=== PATIENT | female | born 1965 | race Caucasian/White ===

== ENCOUNTER 2016-05-28 13:43 | Emergency (ER) | payer MEDICAID ==
[2016-05-28 14:24] LABS: Hematocrit 48.3 % (37.0-47.0); Hemoglobin 15.9 gm/dL (12.5-16.0)
[2016-05-28 14:43] LABS: Albumin * 3.6 gm/dl (3.4-5.0); Anion Gap 13.5 mmol/L (6.8-13.8); BUN/Creatinine Ratio 6.4 (9.0-21.6); Bilirubin, Total 0.7 mg/dL (0.0-1.1); Ca. Corrected For Albumin 9.3 mg/dL (8.4-10.2); Calcium * 9.3 mg/dL (7.9-10.9); Carbon Dioxide 27.8 mmol/L (24-32.6); Potassium 3.3 mmol/L (3.4-4.6); Total Protein 8.2 gm/dL (6.2-8.2)
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
[2016-05-28] MEDS ORDERED: LIDOCAINE HCL/EPINEPHRINE 30 ML VIAL IJ ONE (15:48)
[2016-05-28] MEDS ORDERED: MORPHINE SULFATE 2 MG/ML DISP.SYRIN IV ONE (16:12)
[2016-05-28] MEDS ORDERED: MORPHINE SULFATE 2 MG/ML DISP.SYRIN ONE (16:14)
[2016-05-28 18:48] VITALS: BP 149/82
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
== END 2016-05-28 18:00 | disposition home or self-care (01) ==
LOC: ER 13:43
PROC: 0HQ0XZZ Repair Scalp Skin, External Approach (ICD-10-PCS; principal; 2016-05-28)
DX: S16.1XXA Strain of muscle, fascia and tendon at neck level, initial encounter (principal); S10.93XA Contusion of unspecified part of neck, initial encounter; S20.02XA Contusion of left breast, initial encounter; S20.219A Contusion of unspecified front wall of thorax, initial encounter; V43.62XA Car passenger injured in collision with other type car in traffic accident, initial encounter; Y92.410 Unspecified street and highway as the place of occurrence of the external cause; F17.210 Nicotine dependence, cigarettes, uncomplicated; S09.90XA Unspecified injury of head, initial encounter; S80.01XA Contusion of right knee, initial encounter

== ENCOUNTER 2016-06-04 12:54 | Emergency (ER) | payer MEDICAID ==
[2016-06-04 13:10] VITALS: BP 143/83
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
== END 2016-06-04 14:13 | disposition home or self-care (01) ==
LOC: ER 12:54
DX: M25.775 Osteophyte, left foot (principal); F17.210 Nicotine dependence, cigarettes, uncomplicated

== ENCOUNTER 2016-11-04 07:53 | Inpatient (IN) | payer MEDICAID ==
[~2016-11-04 07:53] MED LIST: MORPHINE SULFATE 15 MG TABLET.SA PO PRN; RINGERS SOLUTION,LACTATED 1,000 ML IV PRN; ROPIVACAINE HCL/PF 100 MG, EPINEPHrine 0.2 MG in NORMAL SALINE 100 ML IJ PRN; ROPIVACAINE HCL/PF 40 MG in NORMAL SALINE 16 ML IJ PRN; TRANEXAMIC ACID 1,000 MG in NORMAL SALINE 100 ML IV PRN; ceFAZolin SODIUM 1 GM VIAL IV PRN
--- OUTSIDE RECORDS SUMMARY | 2016-11-04 07:59 | XMS REPORT | Continuity of Care Document ---
:1965 Author Organization [facility] ([facility]) Address [address] [place] [address] Phone [phone] Care Team Providers Name Role Phone Emeterio [place] Primary Care Provider [phone] Source Comments This disclosure is being made pursuant to the Care Everywhere program, applicable federal and state laws, and may not contain all informaitonavailable regarding this patient.[facility] ([facility]) Active Allergies and Adverse Reactions Allergen Noted Date Severity Reactions Comments Aspirin Nausea & Vomiting Ibuprofen Urticaria (Hives) Latex, Natural Rubber Urticaria (Hives) Gets a rash wearing Latex gloves. Topiramate 03/16/2014 OTHER Blurry vision Current Medications Prescription Sig. Disp. Refills Start Date End Date Status blood glucose meter Check fasting blood 1 Each 0 08/15/2011 Active (BLOOD GLUCOSE METER) sugar at least 5 Kit times a week and document. Indications: Diabetes Mellitus albuterol 90 Use 2 Puffs by 1 Inhaler 6 12/18/2011 Active mcg/Actuation inhaler inhalation every 6 hours as needed. Indications: BRONCHOSPASM PREVENTION simvastatin 40 mg Take 1 Tab by mouth 60 Tab 2 07/20/2013 Active tablet every evening. Indications: MIXED HYPERLIPIDEMIA traMADol 50 mg tablet Take 1 Tab by mouth 90 Tab 1 07/21/2013 Active 4 times daily as needed. Indications: PAIN citalopram 20 mg Take 1 Tab by mouth 60 Tab 3 08/18/2013 Active tablet daily. Indications: VASOMOTOR SYMPTOMS ASSOCIATED WITH MENOPAUSE atenolol 25 mg tablet Take 1 Tab by mouth 60 Tab 11 08/18/2013 Active daily. Indications: HYPERTENSION SUPPLY blood glucose Use to test blood 150 Strip 11 03/16/2014 Active test strips sugar twice daily or as directed. Indications: DIABETES MELLITUS SUPPLY lancets Use twice daily or 150 Each 11 03/16/2014 Active as directed. Indications: DIABETES MELLITUS gabapentin 300 mg Take 2 Caps by mouth 120 Cap 4 03/16/2014 Active capsule 2 times daily. Indications: NEUROPATHIC PAIN NEBULIZER ACCESSORIES Use as directed for 01/02/2015 Active NA COPD 496 8 cyclobenzaprine 10 mg take 1 tablet by 03/29/2015 Active tablet oral route 3 times a day as needed acetaminophen-codeine at bedtime as needed 0 04/06/2015 Active 300-30 mg per tablet Active Problems Problem Noted Date Osteoarthritis of both knees 05/11/2015 Morbid obesity 02/16/2014 COPD (chronic obstructive pulmonary disease) 12/08/2013 Primary osteoarthritis of both knees 07/20/2013 Type II or unspecified type diabetes mellitus without mention of 04/14/2013 complication, not stated as uncontrolled Hypothyroidism 09/08/2012 Metabolic syndrome 09/08/2012 Menorrhagia 09/08/2012 Hot flashes 09/08/2012 Allergic rhinitis 12/18/2011 Tobacco use disorder 12/18/2011 Vitamin D deficiency 10/15/2011 Obesity 08/15/2011 GERD (gastroesophageal reflux disease) 09/27/2010 Umbilical hernia 09/27/2010 Unspecified essential hypertension 06/08/2010 Mixed hyperlipidemia 05/24/2010 Resolved Problems Problem Noted Date Resolved Date Visual field loss 03/04/2014 03/16/2014 Health education/counseling 06/18/2012 09/08/2012 Abdominal pain 03/25/2012 09/08/2012 Constipation 03/25/2012 09/08/2012 Cough 01/23/2012 09/08/2012 SOB (shortness of breath) 01/23/2012 04/14/2013 RAD (reactive airway disease) 12/18/2011 12/08/2013 Hyperglycemia 08/15/2011 12/11/2012 Right foot pain 08/15/2011 04/14/2013 Fatigue 08/15/2011 09/08/2012 Knee pain, bilateral 09/27/2010 11/17/2013 Other specified acquired hypothyroidism 05/24/2010 09/08/2012 Immunizations Name Dates Previously Given Next Due Influenza, PF 05/08/2011,05/24/2010 Tdap 05/24/2010 Social History Tobacco Use Types Packs/Day Years Used Date Current Every Day Smoker Cigarettes 0.5 15 Smokeless Tobacco: Never Used Tobacco Cessation:Counseling Given: Yes Comments: Alcohol Use Drinks/Week oz/Week Comments No Last Filed Vital Signs Vital Sign Reading Time Taken Blood Pressure 146/74 05/10/2015 10:31 AM DIRECTOR OF ASSESSMENT Pulse 68 05/10/2015 10:31 AM DIRECTOR OF ASSESSMENT Temperature 36.3 C (97.3 F) 03/16/2014 8:40 AM CDT Respiratory Rate 16 02/16/2014 9:25 AM CDT Height 1.62 m (5' 3.78") 05/10/2015 10:31 AM DIRECTOR OF ASSESSMENT Weight 124 kg (273 lb 5.9 oz) 05/10/2015 10:31 AM DIRECTOR OF ASSESSMENT Body Mass Index 47.25 05/10/2015 10:31 AM DIRECTOR OF ASSESSMENT Oxygen Saturation 97% 08/18/2013 7:57 AM CDT Plan of Care Patient Goal Type Goal Diet Increase water intake Reduce portion size Weight Weight below 91 kg (200 lb) Weight below 91 kg (200 lb) Result Component % HBA1C below 6 Lifestyle Reduce cigarettes to no more than 5 a day Health Maintenance Due Date Last Done Comments Hepatitis B Vaccine (1 of 3 - 1965 Primary Series) MMR Vaccine 1985 Pneumococcal Vaccine (1 of 1 1986 - PPSV23) DIABETIC: Foot Exam 12/17/2012 DIABETIC: Retinal Eye Exam 12/17/2012 DIABETIC: Microalbumin 09/08/2013 09/08/2012, Additional history exists 07/17/2011, 05/08/2011 Mammogram 09/08/2013 09/08/2012, Additional history exists 08/15/2011, 06/25/2010 Cervical Cancer Screening 08/14/2014 08/15/2011 DIABETIC: Cholesterol 08/18/2014 08/18/2013, Additional history exists 06/18/2012, 07/17/2011 Diabetic: Hdl 08/18/2014 08/18/2013, Additional history exists 06/18/2012, 07/17/2011 Diabetic: Ldl 08/18/2014 08/18/2013, Additional history exists 06/18/2012, 07/17/2011 DIABETIC: Triglycerides 08/18/2014 08/18/2013, Additional history exists 06/18/2012, 07/17/2011 DIABETIC: Hemoglobin A1C 09/14/2014 03/16/2014, Additional history exists 11/17/2013, 08/18/2013 Influenza Vaccine: Seasonal 12/25/2015 05/08/2011, (#1) 05/24/2010 Td Vaccine 05/24/2020 05/24/2010 Tdap Vaccine Completed 05/24/2010 Results from Last 3 Months Not on file
[2016-11-04] MEDS ORDERED: RINGERS SOLUTION,LACTATED 1,000 ML IV ONE ×3 (09:50→12:00)
[2016-11-04] MEDS ORDERED: ceFAZolin SODIUM 1 GM VIAL IV ONE (10:35)
[2016-11-04] MEDS ORDERED: BUPIVACAINE HCL/EPINEPHRINE 50 ML VIAL IJ ONE (12:30)
[2016-11-04] MEDS ORDERED: ACETAMINOPHEN 500 MG TABLET PO PRN (12:40)
[2016-11-04] MEDS ORDERED: ZOLPIDEM TARTRATE 5 MG TABLET PO PRN (12:40)
[2016-11-04] MEDS ORDERED: diphenhydrAMINE HCL 50 MG/ML VIAL IV PRN (12:40)
[2016-11-04] MEDS ORDERED: ONDANSETRON HCL/PF 2 MG/ML VIAL IV PRN (12:40)
[2016-11-04] MEDS ORDERED: RINGERS SOLUTION,LACTATED 1,000 ML IV PRN (12:40)
[2016-11-04] MEDS ORDERED: MAGNESIUM HYDROXIDE 30 ML UDC PO PRN (12:40)
[2016-11-04] MEDS ORDERED: PROMETHAZINE HCL 5 MG in DEXTROSE 5 % IN WATER 50 ML IV PRN ×2 (12:40)
[2016-11-04] MEDS ORDERED: HYDROmorphone HCL 1 MG/ML DISP.SYRIN IV PRN (12:40)
[2016-11-04] MEDS ORDERED: MAG HYDROX/ALUMINUM HYD/SIMETH 30 ML UDC PO PRN (12:40)
[2016-11-04] MEDS ORDERED: CYCLOBENZAPRINE HCL 10 MG TABLET PO PRN (12:42)
[2016-11-04] MEDS ORDERED: ALBUTEROL SULFATE/IPRATROPIUM 3 ML NEBU IH PRN (12:42)
--- NOTE | 2016-11-04 12:48 | OR ---
Operative Report - Dictated Report Narrative: Date: 11/04/2016 Preoperative diagnosis: Right Knee degenerative joint disease, left total knee arthroplasty patellofemoral grind due to hypertrophic scar tissue Postoperative diagnosis: Right Knee degenerative joint disease, left total knee arthroplasty patellofemoral grind due to hypertrophic scar tissue Procedure: Right Total knee arthroplasty, left knee arthroscopy with excision of scar tissue Surgeon: Juan Ordonez M.D. Risk And Insurance Consultant: Reno Martin PA-C Anesthesia: Spinal with regional block and local periarticular joint injection. Complications: None Specimens: Bone for disposal. Estimated blood loss: Minimal. Tourniquet time: 100 Minutes at 325 millimeters of mercury on the right. Retained implants: Depuy Attune size 6 narrow right lugged cemented posterior stabilized femoral component. Size 4 fixed-bearing cemented tibial platform. 6 by 5 millimeter posterior stabilized cross-linked tibial insert. 35 millimeter medialized patella button. Indications: Mrs. Rinaldi is a 51-year-old female who has had long-standing right knee pain and arthrosis. She had previously underwent a left total knee arthroplasty and developed patella femoral grind. This patient was followed in my clinic for period of time with significant complaints of right knee pain consistent with arthritic changes. They had failed conservative measures including, but not limited to, activity modification, passage of time, medications, and other conservative measures. Patient wished to proceed with surgical treatment. The risks, benefits, and alternatives were discussed in clinic. The risks of , blood clots, bleeding, infection, nerve/tendon blood vessel/ injury, malposition of components, intraoperative fracture, postoperative limited range of motion, persistent pain, failure of components, and need for additional procedures. Patient wished to proceed consent was obtained after answering all questions. Procedure: After marking the correct extremity on the floor, the patient was taken to the operating room. A timeout was performed. IV antibiotics consisting of Ancef were administered prior to the procedure. A regional followed by spinal anesthetic was induced by anesthesia on the operative table with all bony prominences well-padded. Dangelo catheter was placed, and a bump was placed under the operative side buttock. SCDs and KENIA hose were utilized on the nonoperative leg. A well-padded tourniquet was applied to the operative thigh. The operative leg was then pre-scrubbed with malathi tang prepped, and draped in a standard sterile fashion. After exsanguinating the extremity with an Esmarch bandage, the tourniquet was inflated. After marking out the anterior knee for standard incision centered over the patella, the skin was incised and dissected down to the joint retinaculum. The joint retinaculum was marked out as well as the horizontal axis of the patella, and a standard medial parapatellar arthrotomy was then made. The most proximal aspect of the quadriceps tendon and the patella tendon insertion were protected from release. A partial synovectomy was performed as well as a resection of the infrapatellar fat pad. The distal femoral fat pad proximal to the trochlea was also resected using cautery. The soft tissues were elevated off the medial aspect of the proximal tibia using a Fernando elevator ensuring that we did not transect the medial collateral ligament. Upon initial evaluation range of motion was approximately 0 degrees to 120 degrees of flexion. There were signs of advanced arthrosis in the medial and patellofemoral joint spaces. There were large marginal osteophytes which were removed with a rongeur. The knee was hyperflexed and the patella was tucked laterally. Protecting the surrounding soft tissues with Homans, an entry drill was placed down the femoral canal using Whitesides line for guidance into the entry point. The intramedullary femoral alignment elenita was utilized in order to cut the distal femur in 5 degrees of valgus resecting 10 millimeters of bone. Next the distal femur was sized to a size 6. A posterior referencing guide was utilized to place the distal femoral cutting block in 3 degrees of external rotation. This was pinned into place. The rotation was confirmed both visually and based on anatomic landmarks. The 4 in 1 cutting jig of the appropriate size was utilized in order to make all bony cuts. The angle wing was used to ensure no notching. Retractors were utilized in order to protect surrounding soft tissues. This cut did not result in any excessive notching. We then cut the box centered over the distal femur. This allowed for resection of the anterior and posterior cruciate ligaments. I then turned my attention to the preparation of the tibia. Using an extra medullary tibial alignment elenita, 6 millimeters of bone was resected off the medial articular surface. This was made perpendicular to the mechanical axis of the joint with the alignment elenita centered over the ankle mortise. The alignment elenita was checked and was noted to be parallel to the mechanical axis, centered over the medial one third of the tibial tubercle, paralleling the anterior surface of the tibia. We then turned our attention to the remaining meniscus and soft tissues. These were removed while protecting the surrounding ligaments and soft tissues. The marginal osteophytes off the anterior, posterior, medial, lateral aspects of the femur and tibia were removed. The tibia was sized out to a size 4. Next the tibia was drilled and punched in an externally rotated position. Next the trial femur and a series of tibial inserts were utilized in order to allow for full extension and maximal flexion. It was found that a 5 millimeter insert gave the best range of motion and stability at multiple flexion points as well as at full extension there was less than 2 mm of gapping both medially and laterally. There is minimal anterior translation with the knee at 90 degrees of flexion and no signs of being able to dislocate the knee. The patella was then prepared. The initial thickness was 24 millimeters. This was reamed down to 14 millimeters parallel to the anterior surface of the patella. It was sized out to a size 35 medialized patella button. This was then drilled and trialed. Without any medial restraint the patella tracked appropriately and did not sublux or dislocate. At this point, it was felt these were the appropriate sized implants, and all trials were removed. The standard periarticular joint injection consisting of ropivacaine, Toradol, and epinephrine were injected into the periarticular joint tissues. The bony surfaces were thoroughly irrigated with a pulsatile- suction saline irrigation device. A bone plug from the prior resected anterior chamfer cut was placed into the drill hole at the distal femur. The bony surfaces were then dried in preparation for placement of the implants. The cement was vacuum mixed per the flight/transport nurse's instructions. The cement was placed on the dry bony surfaces and posterior aspect of the implants. The implants were impacted into place, removing all extruded cement. At this point anesthesia administered tranexamic acid per protocol intravenously. The knee was placed in extension with axial loading with the trial insert while the cement cured. Once the cement cured, all remaining extruded cement was removed. The knee was placed through a range of motion with the trial insert to ensure appropriate range of motion and stability. Final range of motion was approximately 0 to 120 degrees. The knee was again thoroughly irrigated with pulsatile saline lavage. The final polyethylene insert was then impacted into place ensuring no retained soft tissues. The remaining periarticular joint injection was injected. A medium Hemovac drain was placed exiting superior laterally. The knee was then placed over a triangle and the arthrotomy was closed with interrupted #1 Vicryl after thoroughly irrigating the joint. The deep and subcutaneous tissues were closed with interrupted oh and 3-0 Vicryl respectively. Skin was closed with a running subcutaneous 3-0 Monocryl and Prineo Dermabond dressing. 4 x 4's, ABD, Sof-Rol, and a full leg Malvin wrap were applied. All sponge, needle, blade, and instrument counts were correct prior to closing the wounds. Next attention was turned to the left knee. 0.5% Marcaine with epinephrine was infused into the projected portal sites as well as the intra-articular space. A nathanael incision was made for inferior medial portal. A blunt trocar and cannula was introduced into the knee. The suprapatellar pouch revealed hypertrophic scar tissue which seemed to impinge between the patella button and the femoral trochlea. The patella showed no signs of wear on the implant. The femoral and tibial components were unremarkable. There is no signs of impinging scar tissue along the medial or lateral joint spaces. There is no hypertrophic scar tissue in the notch. The remaining knee was otherwise unremarkable other than the hypertrophic scar tissue off the distal aspect of the quadriceps impinging between the patella and the femur. Utilizing a superior medial portal, a shaver was utilized in order to debride the hypertrophic scar tissue down to the quadriceps tendon. This resulted in a resolution of the grinding as well as no signs of remaining impinging tissue. The knee was then thoroughly irrigated and evacuated of its fluid. The wounds were closed with interrupted nylon after placing 20 mL of 0.2% ropivacaine into the joint. Dressings consisting of Xeroform, 4 x 4, ABD, soft roll, and an Malvin were applied. All sponge, needle, blade, and instrument counts were correct prior to closing the wounds. Postoperative condition: The patient was awoken and transferred to the postanesthesia care unit in stable condition. Plan is to be admitted to the inpatient medical/surgical floor postoperatively for 24 hours of IV antibiotics , physical therapy, occupational therapy, and medical comanagement. Patient will be weightbearing as tolerated with range of motion as tolerated. DVT prophylaxis will be with SCDs, KENIA hose, and pharmacological anticoagulation. Anticipated hospital stay is approximately 2-4 days.
[2016-11-04] MEDS: ceFAZolin SODIUM 1 GM in DEXTROSE 5 % IN WATER 100 ML IV SCH ×4 (13:55→21:28)
[2016-11-04] MEDS: oxyCODONE HCL/ACETAMINOPHEN 1 TAB TABLET PO PRN (17:05)
[2016-11-04] MEDS ORDERED: metFORMIN HCL 500 MG TABLET PO SCH (21:00)
[2016-11-04] MEDS: FLUTICASONE/SALMETEROL 14 PUFF DISK.W.DEV IH SCH (21:31)
[2016-11-04] MEDS: MORPHINE SULFATE 15 MG TABLET.SA PO SCH (21:34)
[2016-11-04] MEDS: SENNOSIDES/DOCUSATE SODIUM 1 TAB TABLET PO SCH (21:35)
[2016-11-04] MEDS: METFORMIN HCL PO SCH ×2 (21:36)
[2016-11-04] MEDS: GABAPENTIN 600 MG TABLET PO SCH (21:36)
[2016-11-04] MEDS: SIMVASTATIN 40 MG TABLET PO SCH (21:36)
[2016-11-05] MEDS: oxyCODONE HCL/ACETAMINOPHEN 1 TAB TABLET PO PRN ×5 (01:27→22:56)
[2016-11-05] MEDS: ceFAZolin SODIUM 1 GM in DEXTROSE 5 % IN WATER 100 ML IV SCH ×2 (03:03)
[2016-11-05 06:13] LABS: Hemoglobin 14.1 gm/dL (12.5-16.0); Mean Cell Volume 91.1 fl (78-100); Mean Corpuscular Hemoglobin 30.6 pg (27-31); Mean Corpuscular Hgb Conc 33.6 g/dl (32-36); Platelet Count 242 K/mm3 (150-450); Red Blood Count 4.61 M/mm3 (4.2-5.4); Red Cell Distribution Width 14.2 % (11.5-14.0); White Blood Count 10.8 K/mm3 (4.0-10.5)
[2016-11-05 06:29] LABS: Anion Gap 9.3 mmol/L (6.8-13.8); BUN/Creatinine Ratio 12.6 (9.0-21.6); Carbon Dioxide 30.8 mmol/L (24-32.6); Estimated Creat Clear 64.7; Potassium 4.1 mmol/L (3.4-4.6)
[2016-11-05] MEDS: PANTOPRAZOLE SODIUM 40 MG TABLET.EC PO SCH (06:49)
[2016-11-05] MEDS: LEVOTHYROXINE SODIUM 100 MCG TABLET PO SCH (06:49)
--- NOTE | 2016-11-05 08:19 | PN ---
Subjective - Date and Time Seen Date: 11/05/16 Time: 08:16 Subjective Narrative: Patient reports pain controlled. Right leg feels "heavy". Reports no nausea or vomiting. No CP/SOB. Reports did well getting up to chair for breakfast. No complaints. Objective - Vitals Vitals: Last Vital Signs Temp 37 C 11/05/16 07:38 Pulse 92 11/05/16 07:38 Resp 20 11/05/16 07:38 BP 128/89 11/05/16 07:38 Pulse Ox 96 11/05/16 07:38 - Abnormal Lab Findings Abnormal Lab Findings: Abnormal Lab Results 11/05/16 11/05/16 Range/Units 06:08 06:08 WBC 10.8 H (4.0-10.5) K/mm3 RDW 14.2 H (11.5-14.0) % Random Glucose 114 H (70-110) mg/dL - Exam Constitutional: Present: Alert, Oriented x3, Cooperative, No distress Cauti Physician Documentation - Urinary Catheter Management Urethral (Dangelo) Date of Insertion: 11/04/16 Date of Removal: 11/04/16 Time of Removal: 17:00 Assessment/Plan - Problems/Diagnosis (1) Status post total right knee replacement Problem: Acute Narrative: PT, anticoagulation, pain control, drain out today, recheck labs tomorrow (2) COPD (chronic obstructive pulmonary disease) Problem: Chronic Qualifiers: (3) Depression Problem: Chronic Qualifiers: (4) Diabetes mellitus Problem: Chronic (5) Hyperlipidemia Problem: Chronic Qualifiers: (6) Hypothyroid Problem: Chronic Qualifiers: (7) Leukocytosis Problem: Acute Narrative: reactive-postop, recheck tomorrow
[2016-11-05] MEDS: FLUTICASONE/SALMETEROL 14 PUFF DISK.W.DEV IH SCH ×2 (09:11→20:05)
[2016-11-05] MEDS: CITALOPRAM HYDROBROMIDE 20 MG TABLET PO SCH (09:11)
[2016-11-05] MEDS: ATENOLOL 25 MG TABLET PO SCH (09:12)
[2016-11-05] MEDS: MORPHINE SULFATE 15 MG TABLET.SA PO SCH ×2 (09:12→20:05)
[2016-11-05] MEDS: GABAPENTIN 600 MG TABLET PO SCH ×2 (09:12→20:06)
[2016-11-05] MEDS: ENOXAPARIN SODIUM 40 MG/0.4 ML SYRG SC SCH (11:25)
[2016-11-05] MEDS: METFORMIN HCL PO SCH ×2 (20:05)
[2016-11-05] MEDS: SENNOSIDES/DOCUSATE SODIUM 1 TAB TABLET PO SCH (20:06)
[2016-11-05] MEDS: SIMVASTATIN 40 MG TABLET PO SCH (20:08)
[2016-11-06 05:08] LABS: Hematocrit 41.5 % (37.0-47.0); Hemoglobin 13.7 gm/dL (12.5-16.0); Mean Cell Volume 91.4 fl (78-100); Mean Corpuscular Hemoglobin 30.2 pg (27-31); Mean Platelet Volume 8.9 fl (6.0-9.5); Platelet Count 242 K/mm3 (150-450); Red Blood Count 4.54 M/mm3 (4.2-5.4); Red Cell Distribution Width 14.2 % (11.5-14.0); White Blood Count 11.7 K/mm3 (4.0-10.5)
[2016-11-06 05:30] LABS: Anion Gap 7.7 mmol/L (6.8-13.8); BUN/Creatinine Ratio 11.2 (9.0-21.6); Calcium * 9.3 mg/dL (7.9-10.9); Carbon Dioxide 33.7 mmol/L (24-32.6); Estimated Creat Clear 57.4; Potassium 4.4 mmol/L (3.4-4.6)
[2016-11-06] MEDS: oxyCODONE HCL/ACETAMINOPHEN 1 TAB TABLET PO PRN (05:53)
[2016-11-06] MEDS: LEVOTHYROXINE SODIUM 100 MCG TABLET PO SCH (06:43)
[2016-11-06] MEDS: PANTOPRAZOLE SODIUM 40 MG TABLET.EC PO SCH (06:43)
[2016-11-06] MEDS: FLUTICASONE/SALMETEROL 14 PUFF DISK.W.DEV IH SCH (09:27)
[2016-11-06] MEDS: ATENOLOL 25 MG TABLET PO SCH (09:28)
[2016-11-06] MEDS: GABAPENTIN 600 MG TABLET PO SCH (09:28)
[2016-11-06] MEDS: CITALOPRAM HYDROBROMIDE 20 MG TABLET PO SCH (09:30)
[2016-11-06] MEDS: MORPHINE SULFATE 15 MG TABLET.SA PO SCH (09:30)
[2016-11-06 09:31] VITALS: BP 133/75
[2016-11-06] MEDS: ENOXAPARIN SODIUM 40 MG/0.4 ML SYRG SC SCH (11:18)
--- NOTE | 2016-11-06 12:42 | DS ---
(1) Status post total right knee replacement Problem: Acute (2) COPD (chronic obstructive pulmonary disease) Problem: Chronic Qualifiers: (3) Depression Problem: Chronic Qualifiers: (4) Diabetes mellitus Problem: Chronic (5) Hyperlipidemia Problem: Chronic Qualifiers: (6) Hypothyroid Problem: Chronic Qualifiers: (7) Leukocytosis Problem: Acute Description of Stay: Mrs. Rinaldi was admitted to the floor after undergoing right total knee arthroplasty. She also underwent left knee arthroscopy debridement of scar tissue. Tolerated this well. Was admitted to the floor postoperatively for 24 hours of IV antibiotics, pain control, medical comanagement, and occupational and physical therapy. OT and PT were consulted to assist with activities of daily living and ambulation. Was made weightbearing as tolerated with range of motion as tolerated. Pain was initially controlled with IV regimen. This was transitioned to oral once tolerating a by mouth intake. Was resumed on home diet and medications. Had a Dangelo catheter inserted and the operating room which was discontinued on postoperative day 1. A drain was placed intraoperatively into the knee which was discontinued on postoperative day 1. Lovenox SCD and KENIA hose were utilized for DVT prophylaxis. Vital signs remained stable to the hospital course. Serial labs were obtained which showed a final hemoglobin of 13.7 grams. BMP was reviewed and was stable. Physical examination throughout the hospital course showed an extremity that had sensation that was intact to light touch, palpable pulses, a benign wound, motor intact to the toes, ankle, and knee. Knee range of motion was approximately 5 next 75 degrees to [] degrees. Once an oral pain regimen was tolerated and physical therapy goals were met, it was felt that they were stable for discharge to home. Instructions: Continue with weightbearing as tolerated and range of motion as tolerated. It is OK to shower on the right leg wound if it is not draining. Left knee cover arthroscopic portals with Band-Aids keep clean and dry for 3 more days and can wash in the shower with warm soapy water. If you note any drainage or for comfort you can cover with dry gauze and tape. Change every 2-3 days as needed. Continue with physical therapy. Resume home diet. Report any fever over 101.5 Fahrenheit, uncontrolled pain, increased drainage, foul odor of drainage, new or increased calf pain or shortness of breath, or any other significant complaints. Continue with KENIA hose on the operative extremity until instructed otherwise. No driving until instructed otherwise. Follow up in approximately 10-14 days. Procedures Performed: see notes below List Procedures: Right total knee arthroplasty left, knee arthroscopy debridement of scar tissue Discharge Disposition: Home self care Disposition: Home self-care Condition: Good Discharge Activity: Activity as tolerated Discharge Diet: Consistent carbs Referrals: Rebecca Dee FNP [Primary Care Provider] - Additional Patient Instructions (free text): Follow up with Dr. Ordonez 11/19 at 11:00. Prescriptions (Any new or edited meds): Enoxaparin Sodium [Lovenox] 40 mg SC Q24H #7 disp.syrin Morphine Sulfate [Ms Contin] 15 mg PO Q12H #20 tablet.sa Sennosides/Docusate Sodium [Senokot-S] 2 tab PO HS #30 tablet oxyCODONE HCL/ACETAMINOPHEN [Percocet 5 MG/325 MG] 2 tab PO Q4H PRN #90 tablet PRN Reason: Moderate Pain Complete Home Medications List: Complete Home Medication List: Simvastatin [Zocor] 40 mg PO HS 04/27/13 metFORMIN HCL [Metformin HCl] 1,500 mg PO HS 04/27/13 Levothyroxine Sodium [Synthroid] 200 mcg PO DAILY 08/25/14 Atenolol [Tenormin] 25 mg PO DAILY 08/31/14 Acetaminophen [Tylenol] 1,300 mg PO DAILY PRN 08/21/15 Albuterol Sulfate/Ipratropium [Duoneb 2.5-0.5MG/3ML Soln] 3 ml IH Q4H PRN Blood Sugar Diagnostic, Drum [Accu-Chek Compact] 1 each MC DAILY 08/21/15 Cyclobenzaprine HCl [Flexeril] 10 mg PO TID PRN 08/21/15 Omeprazole [Prilosec] 40 mg PO DAILY 08/21/15 Acetaminophen with Codeine [Tylenol with Codeine #3 Tablet] 1 each PO Q6H PRN # 24 tab 05/02/16 Citalopram Hydrobromide [Citalopram HBr] 40 mg PO DAILY 10/01/16 Fluticasone/Salmeterol [Advair 250-50 Diskus] 1 puff IH BID 10/01/16 Gabapentin [Neurontin] 600 mg PO BID 10/01/16 Enoxaparin Sodium [Lovenox] 40 mg SC Q24H #7 disp.syrin 11/06/16 Morphine Sulfate [Ms Contin] 15 mg PO Q12H #20 tablet.sa 11/06/16 Sennosides/Docusate Sodium [Senokot-S] 2 tab PO HS #30 tablet 11/06/16 oxyCODONE HCL/ACETAMINOPHEN [Percocet 5 MG/325 MG] 2 tab PO Q4H PRN #90 tablet 11/06/16
== END 2016-11-06 13:41 | disposition home or self-care (01) | DRG 470 ==
LOC: MS 07:53
PROVIDERS: ADMIT Orthopaedic Surgery; ATTEND Orthopaedic Surgery
PROC: 0SRC0J9 Replacement of Right Knee Joint with Synthetic Substitute, Cemented, Open Approach (ICD-10-PCS; principal; 2016-11-04 10:55)
PROC: 0SND4ZZ Release Left Knee Joint, Percutaneous Endoscopic Approach (ICD-10-PCS; 2016-11-04 10:55)
DX: M17.9 Osteoarthritis of knee, unspecified (principal); T84.89XA Other specified complication of internal orthopedic prosthetic devices, implants and grafts, initial encounter; L91.0 Hypertrophic scar; L90.5 Scar conditions and fibrosis of skin; E11.9 Type 2 diabetes mellitus without complications; E03.9 Hypothyroidism, unspecified; E78.5 Hyperlipidemia, unspecified; F17.210 Nicotine dependence, cigarettes, uncomplicated